=== PATIENT | male | born 1995 ===

== ENCOUNTER 2016-05-19 15:34 | Emergency (ER) | payer OTHER ==
[2016-05-19 16:03] VITALS: BP 133/80
[2016-05-19] MEDS ORDERED: hydrOXYzine HCL TAB* 25 MG PO ONE (16:38)
--- NOTE | 2016-05-19 16:38 | UC ---
Skin Complaint HPI - HPI Summary HPI Summary: 20 yo male presents with a rash that started about one week ago rash started in gluteal cleft and inner thighs and has since spread to trunk and extremities no intra- oral rash no f/c Just finished one month coarse of VIRADAY 3-4 days ago (PEP) Has also has been using diltaizem cr for the past month for anal fissure Rash is pruritic 2 days ago he had blood work at [facility] including HIV testing and RPR - History of Current Complaint Chief Complaint: UCRas Time Seen by Provider: 05/19/16 16:06 Stated Complaint: RASH Hx Obtained From: Patient Onset/Duration: Gradual Onset, Lasting Days Onset Severity: Mild Current Severity: Moderate Pain Intensity: 0 Pain Scale Used: 0-10 Numeric Location: Diffuse Character: Pruritus, Hives, Redness, Raised Aggravating: Clothing, Touch Alleviating: Nothing Associated Signs & Symptoms: Positive: Rash - Allergy/Home Medications Allergies/Adverse Reactions: Allergies Allergy/AdvReac Type Severity Reaction Status Date / Time No Known Allergies Allergy Verified 05/19/16 15:55 Review of Systems Constitutional: Negative Skin: Rash Eyes: Negative ENT: Negative Respiratory: Negative Cardiovascular: Negative Gastrointestinal: Negative Genitourinary: Negative Motor: Negative Neurovascular: Negative Musculoskeletal: Negative Neurological: Negative Psychological: Negative All Other Systems Reviewed And Are Negative: Yes PMH/Surg Hx/FS Hx/Imm Hx Previously Healthy: Yes - Surgical History Surgical History: None - Family History Known Family History: Positive: Hypertension - Social History Alcohol Use: Rare Substance Use Type: None Smoking Status (MU): Never Smoked Tobacco Physical Exam Triage Information Reviewed: Yes Appearance: Well-Appearing, No Pain Distress, Well-Nourished, Ill-Appearing Vital Signs: Initial Vital Signs Temp 99.7 F 05/19/16 15:56 Pulse 92 05/19/16 15:56 Resp 16 05/19/16 15:56 BP 133/80 05/19/16 15:56 Pulse Ox 97 05/19/16 15:56 Eye Exam: Normal Eyes: Positive: Conjunctiva Clear ENT: Positive: Hearing grossly normal, Pharynx normal, TMs normal. Negative: Nasal congestion, Nasal drainage, Tonsillar exudate, Trismus Neck: Positive: Supple, Nontender, No Lymphadenopathy Respiratory: Positive: Lungs clear, Normal breath sounds, No respiratory distress, No accessory muscle use Cardiovascular: Positive: RRR, No Murmur, Pulses Normal Musculoskeletal: Positive: Strength Intact, ROM Intact Neurological: Positive: Alert Psychological Exam: Normal Skin Exam: Other - diffuse red macular/papular rash with dermatographia Course/Dx - Diagnoses Provider Diagnoses: drug eruption Discharge - Discharge Plan Condition: Stable Disposition: HOME Prescriptions: Fexofenadine (NF) [Cecy (NF)] 60 mg PO QAM #7 tab hydrOXYzine HCL TAB* [Atarax TAB*] 50 mg PO BEDTIME PRN #7 tab PRN Reason: Itching Patient Education Materials: Acute Rash (ED) Additional Instructions: recheck at [facility] in 3-4 days if not improved I suspect this is related to one of the two meds you were on You may be allergic to diltiazem or Virday
== END 2016-05-19 16:50 | disposition home or self-care (01) ==
LOC: UCEAST 15:34
DX: L27.0 Generalized skin eruption due to drugs and medicaments taken internally (principal)
CPT/HCPCS: 99202; A9270-GY; G0463